=== PATIENT | male | born 1960 | race Caucasian/White ===

== ENCOUNTER 2019-10-30 10:23 | Emergency (ER) | payer SELFPAY ==
[2019-10-30 11:10] LABS: #Basophils 0.1 thou/uL (0.0-0.2); #Lymphocytes 0.7 thou/uL (1.20-3.40); #Monocytes 0.6 thou/uL (0.11-0.59); #Neutrophils 7.7 thou/uL (1.40-6.50); %Basophils 1.4 % (0.0-1.0); %Eosinophils 0.2 % (0.0-10.0); %Monocytes 6.6 % (0.0-10.0); %Neutrophils 83.8 % (42.0-75.0); Hemoglobin 14.1 g/dL (14.0-18.0); Mean Corpuscular HGB CONC 34.2 g/dL (32.0-36.0); Mean Corpuscular Hemoglobin 32.8 pg (27.0-31.0); Mean Platelet Volume 6.8 fL (7.4-10.4); Platelet Count 184 thou/uL (130-400); RBC Distribution Width 10.6 % (11.5-14.5); Red Blood Cell (RBC) Count 4.29 mill/uL (4.70-6.10); White Blood Cell (WBC) Count 9.2 thou/uL (4.8-10.8)
[2019-10-30] MEDS ORDERED: Sodium Chloride 0.9% 100 ML ONE (11:15)
[2019-10-30] MEDS ORDERED: Piperacillin/Tazobactam 4.5 GM VIAL ONE (11:15)
[2019-10-30 11:27] LABS: ALT (SGPT) 59 U/L (8-55); AST (SGOT) 80 U/L (5-34); Albumin 3.2 g/dL (3.5-5.0); Alkaline Phosphatase 65 U/L (40-110); Anion Gap 18 mmol/L (10-20); BUN (Urea Nitrogen) 7 mg/dL (8.4-25.7); Bilirubin, Total 2.2 mg/dL (0.2-1.2); Calc. Creatinine Clearance 0 mL/min (70-130); Calcium 8.8 mg/dL (7.8-10.44); Carbon Dioxide 23 mmol/L (22-29); Chloride 84 mmol/L (98-107); Estimated GFR-MDRD Greater than 90; Globulin 3.5 g/dL (2.4-3.5); Glucose 76 mg/dL (70-105); Potassium 3.2 mmol/L (3.5-5.1); Protein, Total 6.7 g/dL (6.0-8.3); Sodium 122 mmol/L (136-145)
[2019-10-30] MEDS ORDERED: Thiamine HCl 200 MG/2 ML VIAL ONE (11:46)
[2019-10-30 11:50] LABS: INR-International Normal Ratio 1.1; PTT 28.6 SEC (22.9-36.1); Prothrombin Time 14.3 SEC (12.0-14.7)
--- NOTE | 2019-10-30 14:01 | RAD ---
AP PORTABLE CHEST: 10/30/2019 1100 HOURS FINDINGS: Normal sized heart and clear lungs. No infiltrate or effusion is seen. Old healed rib fractures are p resent bilaterally. The mediastinum shows no widening or shift. The lungs are mildly hyperexpanded. IMPRESSION: No acute thoracic findings. POS: HOME
== END 2019-10-30 12:49 | disposition short-term general hospital (02) ==
LOC: BURERS 10:23
DX: E87.1 Hypo-osmolality and hyponatremia (principal); R94.5 Abnormal results of liver function studies; F10.10 Alcohol abuse, uncomplicated; K61.1 Rectal abscess; F17.210 Nicotine dependence, cigarettes, uncomplicated; D64.9 Anemia, unspecified; Z79.899 Other long term (current) drug therapy
CPT/HCPCS: 71045; 80053; 82274; 83605; 83880; 84484; 85025; 85610; 85730; 87040; 87086; 94760; 96365; 96375; J2543; J3370; J3411; J3490